=== PATIENT | female | born 1960 | race Caucasian/White ===

== ENCOUNTER 2017-05-01 13:15 | Emergency (ER) | payer BC ==
--- NOTE | 2017-05-01 13:51 | ERNOTE ---
Lower Extremity HPI - Narrative Date of Service: 05/01/17 - General Lower Extremities Pain: leg: right Time Seen by Provider: 05/01/17 13:29 Source: patient, RN notes reviewed Exam Limitations: no limitations - Immun/Allergies/Home Medications Immunizations: IMMUNIZATION HX Immunizations Up to Date Yes History of Influenza Vaccine Yes Hx Pneumococcal Vaccination Yes Allergies/Adverse Reactions: Allergies Allergy/AdvReac Type Severity Reaction Status Date / Time morphine Allergy Verified 05/01/17 13:32 Penicillins Allergy Verified 05/01/17 13:32 Home Medications: HOME MEDICATIONS Aspirin/Calcium Carbonate/Mag [Aspirin Buffered 325 mg Tab] 81 mg PO DAILY 01/09 [Last Taken Unknown] Lisinopril [Zestril] 10 mg PO DAILY 01/10/16 [Last Taken Unknown] Ibuprofen [Motrin] 600 mg PO Q6H PRN #40 tab 05/01/17 [Last Taken Unknown] predniSONE [Prednisone] 2 tab PO DAILY #14 tab 05/01/17 [Last Taken Unknown] - History of Present Illness Narrative: 56 year old female presents to the ED for pain in her left leg that began almost a week ago without incident. The pain initially began in her buttock, but today extends clear down to her popliteal space. Her coworkers told her that it could be a blood clot so she became very concerned. She has been taking ibuprofen without improvement. She has no prior history of DVT. Date (Duration): 04/25/17 Occurred: last week Method of Injury: Reports: no apparent injury Subsequent Symptoms: Denies: sensory loss, numbness, motor loss Prior Treament: Denies: recently seen, similar symptoms before Review of Systems - Review of Systems Constitutional: Absent: fever, chills, malaise EYE: Present: no symptoms reported ENT: Present: no symptoms reported Respiratory: Absent: shortness of breath, cough Cardiology: Absent: chest pain, edema Gastrointestinal/Abdominal: Absent: nausea, abdominal pain Genitourinary: Absent: dysuria, hematuria Musculoskeletal: Present: muscle pain. Absent: back pain, joint pain, joint swelling Skin: Absent: lesions, lumps, change in color Neurological: Absent: headache, dizziness/light-headedness Endocrine: Present: no symptoms reported Hematologic/Lymphatic: Absent: easy bruising, easy bleeding Psych: Present: no symptoms reported - Patient's Past Medical History Patient History - Medical: No pertinent hx Patient History - Cardiac/Respiratory: Hypertension Patient History - Cancer: No Hx of Cancer Patient History - Surgical Procedures: Appendectomy, Cholecystectomy, Hysterectomy Patient History - Other: None LMP (females 10-50): hysterecomy - Social History Living Situations: home Abuse History: No History of abuse Psych History: No pertinent hx Smoking Status: Current every day smoker Cigarettes Packs Per Day: 0.2 Alcohol Use: none Drug Use: none - Immunizations Immunizations Up to Date: Yes Hx Pneumococcal Vaccination: Yes History of Influenza Vaccine: Yes Physical Exam - Physical Exam General Appearance: Present: wd/wn, alert, no apparent distress, anxious Neck: Present: normal inspection, nontender, supple Respiratory: Present: no respiratory distress, normal breath sounds, no accessory muscle use, lungs clear Cardiovascular/Chest: Present: regular rate, rhythm, no murmur, normal peripheral pulses Extremity Exam: Present: normal range of motion, no edema, other - tenderness in left SI joint down to posterior knee. Absent: calf tenderness, extremity edema Neurological Exam: Present: alert, oriented, normal mood/affect, no motor/ sensory deficits Skin Exam: Present: normal color, warm/dry ED Progress - Results and Orders Patient's Lab Results:: I have reviewed the patient's lab results. - Vital Signs Patient's Vital Signs:: I have reviewed the patient's vital signs. Vital Signs: Vital Signs 05/01/17 13:26 Temperature 37.1 C Pulse Rate 93 Respiratory 16 Rate Blood Pressure 145/87 O2 Sat by Pulse 99 Oximetry - CT/Ultrasound CT/Ultrasound Narrative: US of left lower extremity shows no evidence of DVT - Progress/Reassessment Chief Complaint: Lower Extremity Pain/ Injury Progress:: Unchanged Departure Clinical Impression: Left leg pain, Sacroiliitis - Departure Disposition: Home Follow Up Needed Condition: Good Instructions: Sacroiliac Joint Dysfunction, Form - Excuse from Work, School, or Physical Activity Additional Instructions: Take ibuprofen and prednisone with food Follow up with your doctor if symptoms continue Referrals: Laly Bradford MD [Primary Care Provider] - Prescriptions: Ibuprofen [Motrin] 600 mg PO Q6H PRN #40 tab PRN Reason: Pain predniSONE [Prednisone] 2 tab PO DAILY #14 tab
[2017-05-01 15:58] VITALS: BP 150/100
== END 2017-05-01 15:57 | disposition home or self-care (01) ==
LOC: ER 13:15
DX: M79.605 Pain in left leg (principal); M46.1 Sacroiliitis, not elsewhere classified; F17.210 Nicotine dependence, cigarettes, uncomplicated